=== PATIENT | male | born 1940 ===

== ENCOUNTER 2018-11-14 08:42 | Emergency (ER) | payer SELFPAY ==
--- NOTE | 2018-11-14 08:56 | EDM.PDOC ---
ED HPI GENERAL MEDICAL PROBLEM - General Chief Complaint: Lower Extremity Injury/Pain Stated Complaint: INFECTED BITE L ANKLE Time Seen by Provider: 11/14/18 08:54 Source of Information: Reports: Patient, RN, RN Notes Reviewed History Limitations: Reports: No Limitations - History of Present Illness INITIAL COMMENTS - FREE TEXT/NARRATIVE: Pt from out of town here on vacation presents to the ER by POV with an infected insect bite to the left ankle. Pt states that he isn't sure what bit him, but thinks that an insect, spider, or possibly a tick bit him in the left lateral ankle about 4 or 5 days ago. He reports the area was a little red and itched for a couple of days then was going away then began to become red, hot, and tender. Pt came to the ER today because the redness increased and began to spread up his leg. Pt reports Hx of cellulitis at the left chest and shoulder this past year. He denies Hx of MRSA. Denies fever or chills, N/V, or purulent drainage. Onset: Gradual Duration: Constant, Getting Worse Location: Reports: Lower Extremity, Left Quality: Reports: Ache Severity: Mild Improves with: Reports: None Worsens with: Reports: None Left Ankle Pain Score (Numeric/FACES): 1 - Related Data Allergies Allergy/AdvReac Type Severity Reaction Status Date / Time No Known Allergies Allergy Verified 11/14/18 08:52 Home Meds: Home Meds . [Unable to Verify Home Med List] 11/14/18 [History] Past Medical History Endocrine/Metabolic History: Reports: Diabetes, Type II, Obesity/BMI 30+ Social & Family History - Family History Family Medical History: Noncontributory - Tobacco Use Smoking Status *Q: Never Smoker - Alcohol Use Alcohol Use History: Yes Alcohol Use Frequency: Socially - Recreational Drug Use Recreational Drug Use: No - Living Situation & Occupation Occupation: Retired Review of Systems - Review of Systems Review Of Systems: ROS reveals no pertinent complaints other than HPI. ED EXAM, GENERAL - Physical Exam Exam: See Below Exam Limited By: No Limitations General Appearance: Alert, WD/WN, No Apparent Distress, Obese Throat/Mouth: Normal Voice Head: Atraumatic, Normocephalic Respiratory/Chest: No Respiratory Distress, Lungs Clear Cardiovascular: Normal Peripheral Pulses, Regular Rate, Rhythm, No Edema Extremities: Normal Range of Motion, No Pedal Edema, Normal Capillary Refill, Increased Warmth (Left ankle, no purulent drainage, slight visible soft tissue swelling at lateral left ankle without fluctuance or any evidence of abscess.), Redness (left ankle and distal lower leg). No: Joint Swelling, Harsh's Sign Neurological: Alert, Oriented, Normal Cognition, Normal Gait, No Motor/Sensory Deficits Psychiatric: Normal Affect, Normal Mood Lymphatic: No Adenopathy Front/Back Body Diagram: 1 - erythema Course - Vital Signs Last Recorded V/S: Last Vital Signs Temp 97.4 F 11/14/18 08:46 Pulse 76 11/14/18 08:46 Resp 18 11/14/18 08:46 BP 158/95 H 11/14/18 08:46 Pulse Ox 97 11/14/18 08:46 - Orders/Labs/Meds Orders: Active Orders 24 hr Category Date Time Status Peripheral IV Care [RC] . DIRECTED Care 11/14/18 09:08 Active Sodium Chloride 0.9% [Saline Flush] Med 11/14/18 09:08 Active 10 ml FLUSH ASDIRECTED PRN Peripheral IV Insertion Adult [OM.PC] Stat Oth 11/14/18 09:08 Ordered Medication Orders Sodium Chloride (Saline Flush) 10 ml FLUSH ASDIRECTED PRN PRN Reason: Keep Vein Open Last Admin: 11/14/18 09:18 Dose: 10 ml Labs: Laboratory Tests 11/14/18 11/14/18 11/14/18 Range/Units 09:14 09:14 09:14 WBC 6.1 (5.0-10.0) 10^3/uL RBC 4.54 L (4.6-6.2) 10^6/uL Hgb 15.6 (14.0-18.0) g/dL Hct 44.9 (40.0-54.0) % MCV 98.9 (80-100) fL MCH 34.4 H (27.0-34.0) pg MCHC 34.7 (33.0-35.0) g/dL Plt Count 123 L (150-450) 10^3/uL Neut % (Auto) 63.0 (42.2-75.2) % Lymph % (Auto) 21.0 (20.5-50.1) % [place] % (Auto) 14.5 H (2-8) % Eos % (Auto) 1.2 (1.0-3.0) % Baso % (Auto) 0.3 (0.0-1.0) % Sodium 136 (135-145) mmol/L Potassium 3.8 (3.6-5.0) mmol/L Chloride 94 L (101-111) mmol/L Carbon Dioxide 29.0 (21.0-31.0) mmol/L Anion Gap 16.8 BUN 20 H (7-18) mg/dL Creatinine 1.3 (0.6-1.3) mg/dL Est Cr Clr Drug Dosing 44.58 mL/min Estimated GFR (MDRD) 53 BUN/Creatinine Ratio 15.38 Glucose 295 H (74-105) mg/dL Calcium 9.6 (8.4-10.2) mg/dl Total Bilirubin 1.3 H (0.2-1.0) mg/dL AST 31 (10-42) IU/L ALT 27 (10-60) IU/L Alkaline Phosphatase 43 (42-121) IU/L C-Reactive Protein 2.9 H (0.0-1.3) mg/dL Total Protein 8.1 (6.7-8.2) g/dl Albumin 4.2 (3.2-5.5) g/dl Globulin 3.9 Albumin/Globulin Ratio 1.08 Meds: Medications Generic Name Dose Route Start Last Admin Trade Name Freq PRN Reason Stop Dose Admin Sodium Chloride 10 ml 11/14/18 09:08 11/14/18 09:18 Saline Flush FLUSH 10 ml ASDIRECTED PRN Administration Keep Vein Open Discontinued Medications Generic Name Dose Route Start Last Admin Trade Name Freq PRN Reason Stop Dose Admin Cefazolin Sodium/Dextrose 2 gm 50 mls @ 100 mls/hr 11/14/18 09:25 11/14/18 09 :44 / Premix IV 11/14/18 09:54 100 mls/hr ONETIME ONE Administration - Re-Assessments/Exams Free Text/Narrative Re-Assessment/Exam: 11/14/18 10:00 Pt with cellulitis of left ankle and distal lower leg suspected by pt to be from an infected insect bite. WBC not elevated, no fevers, no purulent drainage , and no known Hx of MRSA. Pt is a diabetic 78yr old who is from [place] here on a hunting trip, and the erythema has expanded somewhat rapidly. Therefore, pt will be treated initially with Ancef 2g IV. He will be d/c'd with Rx's for Cephalexin & Doxycycline, and instructions to f/u either in clinic or ER if not improving in 2 to 3 days, or to return to the ER immediately if worse at any time, or if he develops purulent drainage, fluctuance/abscess, or fever. Departure - Departure Time of Disposition: 10:06 Disposition: Home, Self-Care 01 Condition: Good Clinical Impression: Cellulitis of left lower extremity Infected insect bite of ankle Qualifiers: Encounter type: initial encounter Laterality: left Qualified Code(s): S90.562A - Insect bite (nonvenomous), left ankle, initial encounter; L08.9 - Local infection of the skin and subcutaneous tissue, unspecified; W57.XXXA - Bitten or stung by nonvenomous insect and other nonvenomous arthropods, initial encounter - Discharge Information *PRESCRIPTION DRUG MONITORING PROGRAM REVIEWED*: No *COPY OF PRESCRIPTION DRUG MONITORING REPORT IN PATIENT SHONDA: No Instructions: Cellulitis, Adult Forms: ED Department Discharge Additional Instructions: Rx: Cephalexin 500mg Rx: Doxycycline 100mg Follow up in clinic or the ER if not improving by the 3rd day of antibiotic treatment. Return to the ER immediately if you develop fever, purulent (pus) drainage or abscess, or if you are worse at any time. - My Orders Last 24 Hours: My Active Orders 11/14/18 09:08 Peripheral IV Care [RC] . DIRECTED Sodium Chloride 0.9% [Saline Flush] 10 ml FLUSH ASDIRECTED PRN Peripheral IV Insertion Adult [OM.PC] Stat - Assessment/Plan Last 24 Hours: My Active Orders 11/14/18 09:08 Peripheral IV Care [RC] . DIRECTED Sodium Chloride 0.9% [Saline Flush] 10 ml FLUSH ASDIRECTED PRN Peripheral IV Insertion Adult [OM.PC] Stat
[2018-11-14] MEDS ORDERED: Sodium Chloride 0.9% 10 ML Syringe FLUSH PRN (09:08)
[2018-11-14] MEDS ORDERED: ceFAZolin 2 GM in Premix Bag 1 BAG IV ONE (09:25)
[2018-11-14 09:42] LABS: ANION GAP 16.8
== END 2018-11-14 10:24 | disposition home or self-care (01) ==
LOC: DL.ED 08:42
DX: S90.562A Insect bite (nonvenomous), left ankle, initial encounter (principal); L03.116 Cellulitis of left lower limb; E11.9 Type 2 diabetes mellitus without complications; E66.9 Obesity, unspecified; Z68.34 Body mass index [BMI] 34.0-34.9, adult; W57.XXXA Bitten or stung by nonvenomous insect and other nonvenomous arthropods, initial encounter
CPT/HCPCS: 36415; 80053; 85025; 86140; 96365; 99284; J0690